=== PATIENT | female | born 1940 | race African-American/Black ===

== ENCOUNTER 2017-01-11 20:45 | Emergency (ER) | payer OTHER ==
[~2017-01-11] VITALS: Ht 165.1 cm; Wt 50.0 kg
[2017-01-11] MEDS ORDERED: DIPHENHYDRAMINE 50MG/ML VIAL IV ONE (23:00)
[2017-01-11] MEDS ORDERED: DEXAMETHASONE 10MG/ML 1ML VIAL IV ONE (23:00)
[2017-01-11 23:16] LABS: BASOPHILS % 0.5 % (0.0-2.0); HEMATOCRIT. 36.2 % (36.0-48.0); HEMOGLOBIN. 11.7 g/dL (12.0-16.0); LYMPHOCYTES % 26.6 % (20.0-50.0); MEAN CORPUSCULAR HEMOGLOBIN 26.6 pg (28.0-32.0); MEAN CORPUSCULAR HGB CONC 32.4 g/dL (31.0-37.0); MEAN CORPUSCULAR VOLUME 82.2 fL (81.0-99.0); MEAN PLATELET VOLUME 7.8 fl (7.4-10.4); NEUTROPHILS % 65.9 % (40.0-76.0); PLATELET 227 x1000/uL (130-400); RED CELL DISTRIBUTION WIDTH 14.7 % (11.6-14.6)
[2017-01-11 23:43] LABS: CALCIUM 9.2 mg/dL (8.5-10.1)
[2017-01-12 02:30] VITALS: BP 126/78
== END 2017-01-12 02:40 | disposition home or self-care (01) ==
LOC: ER 22:30
DX: T78.40XA Allergy, unspecified, initial encounter (principal); X58.XXXA Exposure to other specified factors, initial encounter; R03.0 Elevated blood-pressure reading, without diagnosis of hypertension; F41.9 Anxiety disorder, unspecified; J44.9 Chronic obstructive pulmonary disease, unspecified; I51.7 Cardiomegaly; Z88.2 Allergy status to sulfonamides
CPT/HCPCS: 36415; 70360; 71010; 80048; 85025; 96374; 96375; 99285; J1100; J1200

== ENCOUNTER 2022-10-14 19:21 | Emergency (ER) | payer OTHER ==
[~2022-10-14] VITALS: Ht 165.1 cm; Wt 67.0 kg
[2022-10-14 19:28] VITALS: BP 145/75
[2022-10-14] MEDS ORDERED: TETANUS, DIPHTHERIA, PERTUSSIS VAC/PF 0.5ML (>10YR OLD) IM ONE (22:45)
[2022-10-14] MEDS ORDERED: LIDOCAINE HCL/PF 1% 10 MG/ML 5ML VIAL INFIL ONE (22:45)
[2022-10-14] MEDS ORDERED: WATER FOR IRRIGATION,STERILE 500 ML IRRIG.SOLN IR NR (22:45)
[2022-10-14] MEDS ORDERED: BACITRACIN ZINC OINT UDPKT TOP ONE (22:45)
[2022-10-14] MEDS ORDERED: CEPH250C2 MT (23:52)
== END 2022-10-15 00:04 | disposition home or self-care (01) ==
LOC: ER 19:21
DX: S61.012A Laceration without foreign body of left thumb without damage to nail, initial encounter (principal); E11.9 Type 2 diabetes mellitus without complications; I10 Essential (primary) hypertension; E78.00 Pure hypercholesterolemia, unspecified; Z90.710 Acquired absence of both cervix and uterus; Z88.2 Allergy status to sulfonamides; W26.0XXA Contact with knife, initial encounter; Y93.G3 Activity, cooking and baking; Y92.010 Kitchen of single-family (private) house as the place of occurrence of the external cause
CPT/HCPCS: 12001; 99282; J3490